=== PATIENT | male | born 1990 | race Two or more races ===

== ENCOUNTER 2024-08-23 06:33 | Emergency (ER) | payer MEDICAID, SELFPAY ==
[2024-08-23 06:35] VITALS: BMI 25.8
[2024-08-23 07:14] VITALS: BP 116/70; PULSE 56; RESP 16; TEMP 37.4; O2SAT 97
--- NOTE | 2024-08-23 07:35 | XR_ITS ---
Examination: PA lateral chest 2 views Technique: Upright PA lateral chest 2 views Indications: Shortness of breath wheezing today. Exam date and time: August 2024 0832 hrs. Findings: Normal heart size There is exenteration of the bronchovascular markings No lobar pneumonia Impression: Bronchitis pattern
[2024-08-23] MEDS: predniSONE 20 MG TABLET 60 MG PO (07:43)
--- NOTE | 2024-08-23 07:44 | EDNOTE_ITS ---
<Statement entered by Jeana Cosby MD - 08/26/24 07:14> As co-signing physician, I was present and available for consult prn. I concur with the plan and care as documented by the midlevel provider. Upper Respiratory Inf. RME/HPI General Chief Complaint: Dental/Oral/Throat Stated Complaint: SORE THROAT,DIFF BREATHING Time Seen by Provider: 08/23/24 06:51 Source: patient Arrival date/time: 08/23/24 06:33 This is a 33-year-old male presents to the emergency department with complaints of shortness of breath wheezing. Patient reports that approximately 9 days ago he had a upper respiratory infection has noticed that his had a lingering cough. He noticed today he had some mild shortness of breath wheezing and throat pain. Denies fever, chills no chest pain. Mode of arrival: ambulatory Limitations: no limitations Related Data Previous Rx's ?Medication ?Instructions ?Recorded albuterol sulfate 90 mcg/actuation 2 puff inhalation Q 6H PRN 08/23/24 aerosol inhaler (Ventolin HFA) shortness of breath or wheezing #8.5 grams azithromycin 250 mg tablet 250 mg PO QDAY 5 days #6 ta bs 08/23/24 omeprazole 40 mg capsule,delayed 40 mg PO QDAY #30 cap s 08/23/24 release prednisone 20 mg tablet 40 mg (2 x 20 mg) PO QDAY 4 days 08/23/24 #8 tabs Allergies Allergy/AdvReac Type Severity Reaction Status Date / Time No Known Allergies Allergy Verified 08/23/24 06:37 Review of Systems Review of Systems Systems Reviewed: All systems reviewed, normal except as documented Narrative Review of Systems: Gen: No fever, no chills, no weight loss EYES: No discharge, no visual changes, no pain HEENT: No ear pain, no congestion, positive sore throat PULM: No shortness of breath, positive cough, no congestion, + positive shortness of breath wheezing CV: No chest pain, no dyspnea on exertion, no palpitations GI: No nausea, no vomiting, no diarrhea, no pain, no constipation : No frequency, no urgency, no dysuria Musc/skel: No joint pain, no back pain Skin: No rash Psyc: No hallucinations, no depression Heme/Lymph: No easy bleeding or bruising tendencies Neuro: No weakness, no headache ED Exam Narrative Physical exam: Appears healthy 33-year-old male nontoxic-appearing General Limitations: Present no limitations General appearance: Present alert and in no apparent distress Head Head exam: Present atraumatic Eye Eye exam: Present normal appearance, PERRL and EOMI ENT ENT exam: Present normal exam and mucous membranes moist Expanded ENT Exam Mouth exam: Present normal external inspection Throat exam: Present tonsillar erythema; Absent tonsillomegaly or tonsillar exudate Neck Neck exam: Present normal inspection, full ROM and trachea midline Chest Chest inspection: Present normal inspection and symmetric chest wall rise Respiratory Respiratory exam: Present wheezes (Mild expiratory wheeze) Cardiovascular Cardiovascular exam: Present regular rate, normal rhythm and normal heart sounds Abdominal Exam Abdominal exam: Present soft and normal bowel sounds Extremities Exam Extremities exam: Present normal inspection and full ROM Back Exam Back exam: Present normal inspection and full ROM Neurological Exam Neurological exam: Present alert, oriented X3 and CN II-XII intact Psychiatric Psychiatric exam: Present normal affect and normal mood Skin Skin exam: Present warm, dry, intact and normal color Course Quality Measures none Orders Category Date Time Status XR chest 2V Stat Exams 08/23/24 07:35 Completed Strep A Rapid Stat Lab 08/23/24 07:45 Completed Albuterol/Ipratr Rt Janny [Duoneb Rt Janny] Med 08/23/24 07:35 Discontinued 3 ml INH X1 ONE predniSONE Med 08/23/24 07:36 Discontinued 60 mg PO X1 ONE Vital Signs Vital signs: Vital Signs Temperature 99.4 F 08/23/24 07:14 Pulse Rate 56 L 08/23/24 07:14 Respiratory Rate 16 08/23/24 07:14 Blood Pressure 116/70 08/23/24 07:14 Pulse Oximetry (%) 97 08/23/24 07:14 Oxygen Delivery Method Room Air 08/23/24 07:14 Upper Respiratory Infection MDM Narrative MDM Narrative:: 83-year-old male presented to the emergency with complaints of shortness of breath and wheezing also throat pain. Strep test was initiated-negative results Patient received a DuoNeb and prednisone. It appears to have mild bronchitis. X-ray was negative for any acute focal lung abnormalities. No hypoxia respiratory distress noted. Advised patient to follow-up with his PCP or clinic in 2 days for follow-up care. Return to the emergency department if there is any worsening symptoms or change in condition. Patient data External records reviewed:: [facility] previous records Clinical information provided by:: patient Social determinants that could affect healthcare access:: none Patient has the following chronic illnesses:: None How is presenting disease/condition affected by chronic disease/condition?: no chronic disease Evaluation data The following diagnostics were reviewed and interpreted by me:: lab results and radiology exam(s) Lab and/or radiology exams considered but not ordered:: no Interpretation Summary: Examination: PA lateral chest 2 views Technique: Upright PA lateral chest 2 views Indications: Shortness of breath wheezing today. Exam date and time: August 2024 0832 hrs. Findings: Normal heart size There is exenteration of the bronchovascular markings No lobar pneumonia Impression: Bronchitis pattern Medications / Prescriptions Medications or Prescriptions considered but not ordered:: no Medication administrations:: Medication Administration History Discontinued Medications Albuterol/Ipratropium (Albuterol/Ipratropium (Duoneb) Rt Janny 3 Ml Nebu) 3 ml INH X1 ONE Stop: 08/23/24 07:36 Last Admin: 08/23/24 07:56 Dose: 3 ml Documented By: DAY Prednisone (Prednisone 20 Mg Tablet) 60 mg PO X1 ONE Stop: 08/23/24 07:37 Last Admin: 08/23/24 07:43 Dose: 60 mg Documented By: DICKSON All medications administered and effective Consultations Consultation(s) initiated? (list below): No Diagnosis Upper Respiratory Differential Diagnosis: upper respiratory infection, viral infection, bronchitis, influenza and pharyngitis Most likely diagnosis given after review of the tests above:: Bronchitis with wheezing Admission Indicated Admission indicated?: not indicated Admission Request Was there a request for admission?: No Disposition Plan Disposition Plan: Discharge Discharge Attestation Discharge Attestation: The patient and all family members were given an opportunity to ask questions and understood the discharge instructions. Discharge instructions specifically effects, indications for sooner follow up or return to the emergency department, and the expected course of current diagnosis. Patient condition: Stable Discharge Plan Plan Patient Disposition: HOME (Self Care) Patient condition on transfer: Stable Prescriptions/Referrals Prescriptions/Med Rec: New azithromycin 250 mg tablet 250 mg PO QDAY 5 Days Qty: 6 0RF Rx Instructions: 500 mg p.o. day 1, 250 mg p.o. daily for 4 days prednisone 20 mg tablet 40 mg PO QDAY 4 Days Qty: 8 0RF albuterol sulfate [Ventolin HFA] 90 mcg/actuation HFA aerosol inhaler 2 puff inhalation Q6H PRN (Reason: shortness of breath or wheezing) Qty: 8.5 0RF omeprazole 40 mg capsule,delayed release(DR/EC) 40 mg PO QDAY Qty: 30 0RF Referrals: No Primary/Family,Physician [Primary Care Provider] - In 1 week Problem List Clinical Impression: Bronchial asthma Patient/Caregiver Discharge Instructions Discharge Activity: activity as tolerated Education Materials: Acute Bronchitis Additional Instructions: Please make sure you start the antibiotic course for 5 days. I did send you a course of prednisone to help with inflammation please start your first dose tomorrow. Please follow-up with your primary doctor. To the emergency department this any worsening symptoms change in condition. Print Language: Malay Stand Alone Forms: Alexandra Award Info., Patient Portal Info Letter PA/BUTTERMILK DRIER OPERATOR Supervising Physician PA/BUTTERMILK DRIER OPERATOR Supervising Physician: Dr. Esteves
[2024-08-23] MEDS: ALBUTEROL/IPRATROPIUM (Duoneb) RT SOL 3 ML NEBU INH (07:56)
[2024-08-23 07:58] VITALS: PULSE 84; RESP 18; O2SAT 99
[2024-08-23 10:03] LABS: Strep A Rapid Negative (Negative)
== END 2024-08-23 10:42 | disposition home or self-care (01) ==
PROVIDERS: Nurse Practitioner Primary Care; Emergency Provider Emergency Medicine
DX: J45.909 Unspecified asthma, uncomplicated (principal)
CPT/HCPCS: 71046; 87651; 94640; 99283; A9270; J7512

== ENCOUNTER 2024-08-28 06:17 | Emergency (ER) | payer MEDICAID, SELFPAY ==
[2024-08-28 06:18] VITALS: BMI 26.6
[2024-08-28 06:23] VITALS: BP 123/83; PULSE 84; RESP 17; TEMP 36.8; O2SAT 100
--- NOTE | 2024-08-28 06:41 | EDNOTE_ITS ---
<Statement entered by Jeana Cosby MD - 08/28/24 07:25> As co-signing physician, I was present and available for consult prn. I concur with the plan and care as documented by the midlevel provider. ED General RME/HPI General Chief complaint: General Adult/Misc Complain Stated complaint: NOSE INJURY Time Seen by Provider: 08/28/24 06:39 Source: patient Arrival date/time: 08/28/24 06:17 33-year-old male with no known medical history presents to the emergency room with a chief complaint of an injury to his nose. Patient states he ran into a playground yesterday afternoon. Mode of arrival: ambulatory Limitations: no limitations Related Data Previous Rx's ?Medication ?Instructions ?Recorded albuterol sulfate 90 mcg/actuation 2 puff inhalation Q 6H PRN 08/23/24 aerosol inhaler (Ventolin HFA) shortness of breath or wheezing #8.5 grams omeprazole 40 mg capsule,delayed 40 mg PO QDAY #30 cap s 08/23/24 release Allergies Allergy/AdvReac Type Severity Reaction Status Date / Time No Known Allergies Allergy Verified 08/28/24 06:20 Review of Systems Review of Systems Systems Reviewed: All systems reviewed, normal except as documented Constitutional Constitutional: Reports system reviewed and no additional complaints, except as documented, Denies fatigue, Denies fever(s), Denies headache(s) and Denies weakness Eyes Eyes: Reports system reviewed and no additional complaints, except as documented, Denies blurry vision and Denies change in vision ENT Ears, Nose, Mouth, and Throat: Reports system reviewed and no additional complaints, except as documented, Denies otalgia, Denies headache(s), Denies nasal congestion, Reports nose pain, Denies throat swelling and Denies vertigo Cardiovascular Cardiovascular: Reports system reviewed and no additional complaints, except as documented, Denies chest pain, Denies dyspnea and Denies dyspnea on exertion Respiratory Respiratory: Reports system reviewed and no additional complaints, except as documented, Denies chest congestion, Denies cough, Denies dyspnea, Denies dyspnea on exertion and Denies wheezing Gastrointestinal Gastrointestinal: Reports system reviewed and no additional complaints, except as documented, Denies abdominal pain, Denies cramping, Denies nausea and Denies vomiting Genitourinary Genitourinary: Reports system reviewed and no additional complaints, except as documented, Denies dysuria and Denies hematuria Musculoskeletal Musculoskeletal: Reports system reviewed and no additional complaints, except as documented and Denies back pain Integumentary/Breasts Skin/Breast: Reports system reviewed and no additional complaints, except as documented and Denies wounds Neurologic Neurologic: Reports system reviewed and no additional complaints, except as documented, Denies confusion, Denies headache(s), Denies lack of coordination, Denies vertigo and Denies weakness Psychiatric Psychiatric: Reports system reviewed and no additional complaints, except as documented, Denies anxiety, Denies confusion, Denies depression, Denies paranoia, Denies suicidal ideation and Denies tactile hallucinations Endocrine Endocrine: Reports system reviewed and no additional complaints, except as documented and Denies fatigue Hematologic/Lymphatic Hematologic/Lymphatic: Reports system reviewed and no additional complaints, except as documented and Denies lymphadenopathy Allergic/Immunologic Allergic/Immunologic: Reports system reviewed and no additional complaints, except as documented, Denies throat swelling, Denies urticaria and Denies wheezing Past Medical History Social History SMOKING STATUS: Current every day smoker ED Exam General Limitations: Present no limitations General appearance: Present alert and in no apparent distress Head Head exam: Present atraumatic Eye Eye exam: Present normal appearance, PERRL and EOMI ENT ENT exam: Present normal exam, normal oropharynx and mucous membranes moist Expanded ENT Exam Nose exam: Absent sinus tenderness, nasal deviation, crepitus, septal hematoma, laceration or abrasion Neck Neck exam: Present normal inspection, full ROM and trachea midline Chest Chest inspection: Present normal inspection and symmetric chest wall rise Respiratory Respiratory exam: Present normal lung sounds bilaterally Cardiovascular Cardiovascular exam: Present regular rate, normal rhythm and normal heart sounds Abdominal Exam Abdominal exam: Present soft and normal bowel sounds Extremities Exam Extremities exam: Present normal inspection and full ROM Back Exam Back exam: Present normal inspection and full ROM Neurological Exam Neurological exam: Present alert, oriented X3 and CN II-XII intact Psychiatric Psychiatric exam: Present normal affect and normal mood Skin Skin exam: Present warm, dry, intact and normal color Course Quality Measures none Vital Signs Vital signs: Vital Signs Temperature 98.3 F 08/28/24 06:23 Pulse Rate 84 08/28/24 06:23 Respiratory Rate 17 08/28/24 06:23 Blood Pressure 123/83 08/28/24 06:23 Pulse Oximetry (%) 100 08/28/24 06:23 Oxygen Delivery Method Room Air 08/28/24 06:23 O2 saturation 100% within normal limits MDM Patient data External records reviewed:: [facility] previous records Clinical information provided by:: patient Social determinants that could affect healthcare access:: none Patient has the following chronic illnesses:: No chronic illness How is presenting disease/condition affected by chronic disease/condition?: no chronic disease Evaluation data The following diagnostics were reviewed and interpreted by me:: lab results and radiology exam(s) Lab and/or radiology exams considered but not ordered:: Labs and radiology exams considered and ordered Interpretation Summary: N/A Medications Medications considered but not ordered:: No medication given Medication administrations:: No medication given Consultations Consultation(s) initiated? (list below): No Diagnosis Differential Diagnosis ED Complaint MDM: Nasal contusion/epistaxis/closed injury Most likely diagnosis given after review of the tests above:: Nasal contusion Admission Indicated Admission indicated?: not indicated Explain why admission is indicated or not indicated:: N/A Admission Request Was there a request for admission?: No Disposition Plan Disposition Plan: Discharge Discharge Attestation Discharge Attestation: The patient and all family members were given an opportunity to ask questions and understood the discharge instructions. Discharge instructions specifically effects, indications for sooner follow up or return to the emergency department, and the expected course of current diagnosis. Patient condition: Stable Medical Decision Making [facility] Narrative MDM Narrative: 33-year-old male with no known medical history presents to the emergency room with a chief complaint of an injury to his nose. Patient states he ran into a playground yesterday afternoon. Patient is hemodynamically stable and in no apparent distress. Physical examination shows swelling to the patient's nose. There is no crepitus the nose is symmetric there is minor swelling and a minor bump on the nose. Patient denies any other pain or injury to any other part of his body or face. Patient states he was concerned and thought he broke his nose. There is no epistaxis. Patient is able to inhale and exhale through the nose with no complications. There is no sinus tenderness. There is no lacerations or any abrasions. Patient was discharged and educated to follow-up with primary care provider and return to the emergency room for any evidence of worsening signs or send Differential Diagnosis Differential Diagnosis: Nasal contusion/epistaxis/closed injury Discharge Plan Plan Patient Disposition: HOME (Self Care) Disposition Comment: Stable Prescriptions/Referrals Prescriptions/Med Rec: No Action albuterol sulfate [Ventolin HFA] 90 mcg/actuation HFA aerosol inhaler 2 puff inhalation Q6H PRN (Reason: shortness of breath or wheezing) Qty: 8.5 0RF omeprazole 40 mg capsule,delayed release(DR/EC) 40 mg PO QDAY Qty: 30 0RF Problem List Clinical Impression: Contusion of nose Patient/Caregiver Discharge Instructions Education Materials: ED Nasal Contusion Additional Instructions: Please follow-up with your primary care provider in the next 24 to 48 hours. For any evidence of worsening signs or symptoms please return to the emergency room immediately Print Language: Brazilian Stand Alone Forms: Alexandra Award Info., Patient Portal Info Letter PA/COLLECTION SYSTEMS FOREMAN Supervising Physician PA/MARK Supervising Physician: Dr. COSBY
[2024-08-28 06:43] VITALS: RESP 18
== END 2024-08-28 07:47 | disposition home or self-care (01) ==
LOC: SERX 06:44
PROVIDERS: Emergency Provider Emergency Medicine
DX: S00.33XA Contusion of nose, initial encounter (principal); F17.210 Nicotine dependence, cigarettes, uncomplicated; W22.8XXA Striking against or struck by other objects, initial encounter; Y92.89 Other specified places as the place of occurrence of the external cause
CPT/HCPCS: 99281